=== PATIENT | female | born 1980 | race Hispanic/Latino ===

== ENCOUNTER 2021-11-03 15:55 | Inpatient (IN) | payer BC ==
[2021-11-03 17:09] LABS: Urine Blood 3+ (Negative); Urine Glucose Negative (Negative); Urine Protein 2+ (Negative); Urine Specific Gravity 1.025 (1.005-1.030); Urine pH 6.5 (5.0-7.0)
[2021-11-03 17:18] LABS: Absolute Lymphocytes (CBC) 1.1 K/uL (0.7-4.9); Hematocrit 35.8 % (36.0-45.0); Lymphocytes % 11.9 % (15.3-44.8); RBC Red Blood Cell Count 4.11 M/uL (3.86-4.86)
--- NOTE | 2021-11-03 17:20 | RAD REPORT ---
EXAM DESCRIPTION: RAD - Chest Single View - 11/03/2021 5:13 pm CLINICAL HISTORY: FEVER Chest pain. COMPARISON: <Comparisons> FINDINGS: Portable technique limits examination quality. Moderate consolidation is seen in the right upper lobe likely representing bronchopneumonia. The lung s are otherwise clear. The heart is normal in size. No displaced fractures.
[2021-11-03 17:44] LABS: Urine Bacteria 20-50 /HPF (<20)
[2021-11-03] MEDS ORDERED: NA CHLORIDE 0.9% 100 ML IV ONE (17:44)
[2021-11-03] MEDS ORDERED: AZITHROMYCIN 500 MG INJ IVPB ONE (17:44)
[2021-11-03] MEDS ORDERED: CEFTRIAXONE 1000 MG/VIAL ONE (17:44)
[2021-11-03 17:45] LABS: Urine Specific Gravity/Preg 1.025 (1.005-1.030)
[2021-11-03 17:46] LABS: Protime INR 1.39
[2021-11-03 17:55] LABS: Albumin 2.9 g/dL (3.4-5.0); Bilirubin Total 1.5 mg/dL (0.2-1.0); Potassium 3.3 mmol/L (3.5-5.1); Protein, Total 7.8 g/dL (6.4-8.2)
--- NOTE | 2021-11-03 18:03 | EDPHYS ---
Physician Documentation [facility] Name: Marley Adams Age: 41 yrs Sex: Female : 1980 Arrival Date: 11/03/2021 Time: 15:56 Bed 6 Private MD: ED Physician Bipin Le Historical: - Allergies: 11/03 16:28 No Known Allergies; ab2 - PMHx: 16:28 Mitral Valve Prolapse; ab2 - PSHx: 16:28 None; ab2 - Immunization history:: Adult Immunizations up to date. - Social history:: Smoking status: Patient denies any tobacco usage or history of. Vital Signs: 16:25 BP 138 / 91; Pulse 128; Resp 19; Temp 102.2(O); Pulse Ox 100% on R/A; Weight 92.08 kg; ab2 Height 5 ft. 1 in. (154.94 cm); Pain 10/10; 18:36 BP 118 / 65; Pulse 101; Resp 18; Pulse Ox 99% on R/A; valente 19:30 BP 113 / 59; Pulse 103; Resp 17; Pulse Ox 97% on R/A; lg3 19:43 Temp 99.2(O); lg3 16:25 Body Mass Index 38.36 (92.08 kg, 154.94 cm) ab2 MDM: 15:58 Patient medically screened. jr8 18:02 Data reviewed: vital signs, nurses notes, lab test result(s), EKG, radiologic studies, jr8 plain films. Data interpreted: Pulse oximetry: on room air is 100 %. Interpretation: normal. Counseling: I had a detailed discussion with the patient and/or guardian regarding: the historical points, exam findings, and any diagnostic results supporting the discharge/admit diagnosis, lab results, radiology results, the need for further work-up and treatment in the hospital. 18:03 ED course: Patient with right upper lob pneumonia with fever of 102.2 and HR of 128 jr8 initially. Lactate 2.3. Meets criteria for severe sepsis with organ dysfunction. Will admit for further evaluation. 11/03 16:35 Order name: Blood Culture Adult (2) jr8 11/03 16:35 Order name: CBC with Diff; Complete Time: 17:29 jr8 11/03 16:35 Order name: CMP; Complete Time: 17:59 [facility] 11/03 16:35 Order name: Lactate; Complete Time: 17:59 [facility] 11/03 16:35 Order name: Protime (+inr); Complete Time: 17:59 [facility] 11/03 16:35 Order name: Ptt, Activated; Complete Time: 17:59 [facility] 11/03 16:35 Order name: Urine Microscopic Only; Complete Time: 17:59 [facility] 11/03 16:35 Order name: Chest Single View XRAY; Complete Time: 17:29 [facility] 11/03 16:36 Order name: COVID-19/FLU A+B (Document "Date of Onset" if Symptomatic); Complete Time: 18:56 11/03 17:09 Order name: Urine --Ancillary (enter results); Complete Time: 17:[address] [facility] 11/03 17:09 Order name: Urine Dipstick-Ancillary; Complete Time: 17:29 [facility] 11/03 17:47 Order name: Urine Culture [facility] 11/03 19:55 Order name: [facility] 11/03 16:35 Order name: Accucheck; Complete Time: 18:36 [facility] 11/03 16:35 Order name: Cardiac monitoring; Complete Time: 17:16 [facility] 11/03 16:35 Order name: EKG - Nurse/Tech; Complete Time: 18:35 [facility] 11/03 16:35 Order name: IV Saline Lock - Large Bore; Complete Time: 17:15 [facility] 11/03 16:35 Order name: Labs collected and sent; Complete Time: 17:15 [facility] 11/03 16:35 Order name: O2 Per Protocol; Complete Time: 17:15 [facility] 11/03 16:35 Order name: O2 Sat Monitoring; Complete Time: 17:15 [facility] 11/03 16:35 Order name: Urine Dipstick-Ancillary (obtain specimen); Complete Time: 17:15 [facility] 11/03 16:35 Order name: Urine Test (obtain specimen); Complete Time: 17:15 [facility] 11/03 17:28 Order name: Labs - recollect needed: please recollect blue and green; Complete Time: em1 17:36 Administered Medications: 17:15 Drug: Motrin (ibuprofen) 800 mg Route: PO; valente 17:15 Follow up: Response: No adverse reaction valente 17:15 Drug: NS 0.9% (30 ml/kg) 30 ml/kg Route: IV; Rate: bolus; Site: left antecubital; valente 17:49 Drug: Rocephin (cefTRIAXone) 1 grams Route: IV; Rate: calculated rate; Site: left valente antecubital; 17:49 Follow up: IV Status: Completed infusion valente 18:03 Follow up: IV Status: Completed infusion valente 17:49 Drug: Zithromax (azithromycin) 500 mg Route: IVPB; Infused Over: 1 hrs; Site: left valente antecubital; 18:03 Follow up: IV Status: Completed infusion valente 18:36 Follow up: IV Status: Completed infusion valente 19:42 Drug: NS 0.9% (30 ml/kg) 30 ml/kg Route: IV; Rate: bolus; Site: left antecubital; as6 19:54 Follow up: Response: No adverse reaction; IV Status: Completed infusion lg3 Disposition: 11/04 15:36 Co-signature as Attending Physician, Bipin GAO was immediately available on-site ms3 in the Emergency Department for consultation in the care of the patient.. Disposition Summary: 11/03/21 18:03 Hospitalization Ordered Hospitalization Status: Inpatient Admission jr8 Provider: Polo Travis Location: Telemetry/[facility] (Inpatient) [facility] Condition: Stable jr8 Problem: new jr8 Symptoms: have improved jr8 Bed/Room Type: Standard [facility] Room Assignment: 220(11/03/21 19:34) cg Diagnosis - Pneumonia, unspecified organism jr8 - Severe sepsis without septic shock jr8 Forms: - Medication Reconciliation Form jr8 - SBAR form jr8 Signatures: Dispatcher [employer] Rich Doran em1 Aaron Chavarria PA PA jr8 Mary Jane Cyr RN Bipin Burr DO DO ms3 Ilya Marie RN RN as6 Tila Roy RN RN ha Bleininger, Alexis ab2 Gibson, Lacie RN lg3 Corrections: (The following items were deleted from the chart) 11/03 19:34 18:03 jr8 cg
--- NOTE | 2021-11-03 18:03 | ER ---
Nurse's Notes [facility] Name: Marley Adams Age: 41 yrs Sex: Female : 1980 Arrival Date: 11/03/2021 Time: 15:56 Bed 6 Private MD: Diagnosis: Pneumonia, unspecified organism;Severe sepsis without septic shock Presentation: 11/03 16:25 Chief complaint: Patient states: "I have had a fever for 4 days and I cannot break it." ab2 Pt c/o dry cough, headache and body aches. Pt last dose of Tylenol was at 1400. Coronavirus screen: Vaccine status: Patient reports receiving the 2nd dose of the covid vaccine. Client denies travel out of the [place] in the last 14 days. At this time, the client does not indicate any symptoms associated with coronavirus-19. Ebola Screen: Patient negative for fever greater than or equal to 101.5 degrees Fahrenheit, and additional compatible Ebola Virus Disease symptoms Patient denies exposure to infectious person. Patient denies travel to an Ebola-affected area in the 21 days before illness onset. No symptoms or risks identified at this time. Initial Sepsis Screen: Does the patient meet any 2 criteria? Temp <36.0*C (96.8*F)) or > 38.3*C (100.9*F). HR > 90 bpm. Yes Does the patient have a suspected source of infection? No. Patient's initial sepsis screen is negative. If YES to both, name of provider notified: Bipin Le DO Risk Assessment: Do you want to hurt yourself or someone else? Patient reports no desire to harm self or others. Onset of symptoms is unknown. 16:25 Method Of Arrival: Ambulatory ab2 16:25 Acuity: ROQUE 3 ab2 Triage Assessment: 16:29 Headache History: The patient has had previous headaches and this one is similar to ab2 previous episodes. General: Appears in no apparent distress. uncomfortable, Behavior is calm, cooperative, appropriate for age. Pain: Complains of pain in head Pain currently is 10 out of 10 on a pain scale. Pain began 4 days Also complains of decreased appetite, nausea. EENT: No deficits noted. No signs and/or symptoms were reported regarding the EENT system. Neuro: Level of Consciousness is awake, alert, obeys commands, Oriented to person, place, time, situation, Appropriate for age Associate Account Manager are equal bilaterally Moves all extremities. Gait is steady, Speech is normal, Facial symmetry appears normal, Reports headache. Cardiovascular: No deficits noted. Denies chest pain. Respiratory: Airway is patent Respiratory effort is even, unlabored, Respiratory pattern is regular, symmetrical. GI: No deficits noted. No signs and/or symptoms were reported involving the gastrointestinal system. Abdomen is round. : No deficits noted. No signs and/or symptoms were reported regarding the genitourinary system. Derm: Skin is intact, is healthy with good turgor, Skin is pink, warm \\T\\ dry. Historical: - Allergies: 16:28 No Known Allergies; ab2 - PMHx: 16:28 Mitral Valve Prolapse; ab2 - PSHx: 16:28 None; ab2 - Immunization history:: Adult Immunizations up to date. - Social history:: Smoking status: Patient denies any tobacco usage or history of. Screenin:16 Abuse screen: Denies threats or abuse. Denies injuries from another. Nutritional valente screening: No deficits noted. Tuberculosis screening: No symptoms or risk factors identified. Fall Risk IV access (20 points). Assessment: 17:16 Pain: Complains of pain in bodyaches. Neuro: No deficits noted. Level of Consciousness valente is awake, alert, obeys commands, Oriented to person, place, time, situation, Reports headache. 19:23 General: Appears in no apparent distress. comfortable, Behavior is calm, cooperative. lg3 Neuro: No deficits noted. Level of Consciousness is awake, alert, obeys commands, Oriented to person, place, time, situation. Cardiovascular: No deficits noted. Capillary refill < 3 seconds JVD is absent Patient's skin is warm and dry. Respiratory: Reports cough that is Airway is patent Trachea midline Respiratory effort is even, unlabored, Respiratory pattern is regular, symmetrical. GI: No deficits noted. No signs and/or symptoms were reported involving the gastrointestinal system. Abdomen is round non-distended. : No deficits noted. No signs and/or symptoms were reported regarding the genitourinary system. EENT: No deficits noted. No signs and/or symptoms were reported regarding the EENT system. Derm: No deficits noted. No signs and/or symptoms reported regarding the dermatologic system. Skin is intact, is healthy with good turgor, Skin is dry, Skin is pink, warm \\T\\ dry. Musculoskeletal: No deficits noted. No signs and/or symptoms reported regarding the musculoskeletal system. Circulation, motion, and sensation intact. Range of motion: intact in all extremities. 19:43 General: attempted to call report. Zari not available at this time. will try again. . lg3 Vital Signs: 16:25 BP 138 / 91; Pulse 128; Resp 19; Temp 102.2(O); Pulse Ox 100% on R/A; Weight 92.08 kg; ab2 Height 5 ft. 1 in. (154.94 cm); Pain 10/10; 18:36 BP 118 / 65; Pulse 101; Resp 18; Pulse Ox 99% on R/A; valente 19:30 BP 113 / 59; Pulse 103; Resp 17; Pulse Ox 97% on R/A; lg3 19:43 Temp 99.2(O); lg3 16:25 Body Mass Index 38.36 (92.08 kg, 154.94 cm) ab2 ED Course: 15:56 Patient arrived in ED. am2 15:58 Aaron Chavarria PA is PHCP. jr8 15:58 Bipin Le DO is Attending Physician. jr8 16:28 Triage completed. ab2 16:30 Arm band placed on left wrist. ab2 17:14 Chest Single View XRAY In Process Unspecified. EDMS 17:14 COVID-19/FLU A+B (Document "Date of Onset" if Symptomatic) Sent. valente 17:16 Tila Roy RN is Primary Nurse. valente 17:16 Patient has correct armband on for positive identification. Bed in low position. valente 17:16 No provider procedures requiring assistance completed. Inserted saline lock: 20 gauge valente in left antecubital area, using aseptic technique. 18:02 Polo Travis MD is Hospitalizing Provider. jr8 19:23 Door closed. Noise minimized. Warm blanket given. Pillow given. lg3 19:24 Primary Nurse role handed off by Tila Roy, KRYS cs9 19:37 Kelle Stevens, KRYS is Primary Nurse. lg3 19:54 Patient admitted, IV remains in place. intact, No redness/swelling at site. lg3 Administered Medications: 17:15 Drug: Motrin (ibuprofen) 800 mg Route: PO; valente 17:15 Follow up: Response: No adverse reaction valente 17:15 Drug: NS 0.9% (30 ml/kg) 30 ml/kg Route: IV; Rate: bolus; Site: left antecubital; valente 17:49 Drug: Rocephin (cefTRIAXone) 1 grams Route: IV; Rate: calculated rate; Site: left valente antecubital; 17:49 Follow up: IV Status: Completed infusion valente 18:03 Follow up: IV Status: Completed infusion valente 17:49 Drug: Zithromax (azithromycin) 500 mg Route: IVPB; Infused Over: 1 hrs; Site: left antecubital; 18:03 Follow up: IV Status: Completed infusion valente 18:36 Follow up: IV Status: Completed infusion valente 19:42 Drug: NS 0.9% (30 ml/kg) 30 ml/kg Route: IV; Rate: bolus; Site: left antecubital; as6 19:54 Follow up: Response: No adverse reaction; IV Status: Completed infusion [facility] Outcome: 18:03 Decision to Hospitalize by Provider. oxana 19:53 Admitted to Med/surg accompanied by tech, via wheelchair, room 220, Report called to [address] 19:53 Condition: stable 19:53 Instructed on the need for admit. 20:10 Patient left the ED. as6 Signatures: Dispatcher [employer] EDMS Aaron Chavarria PA PA jr8 Monica Cohn am2 Kelle Stevens RN RN 3 Starr Henao 9 Ilya Marie RN RN as6 Tila Roy RN RN ha Bleininger, Alexis ab2
[2021-11-03] MEDS ORDERED: NA CHLORIDE 0.9% 1,000 ML ONE (18:04)
[2021-11-03 18:51] LABS: SARS-COV-2 RT PCR NEGATIVE (NEGATIVE)
--- NOTE | 2021-11-03 19:48 | P.HP ---
Certification for Inpatient Patient admitted to: Inpatient With expected LOS: >2 Midnights Patient will require the following post-hospital care: None Practitioner: I am a practitioner with admitting privileges, knowledge of patient current condition, hospital course, and medical plan of care. Services: Services provided to patient in accordance with Admission requirements found in Title 42 Section 412.3 of the Code of Federal Regulations Patient History Date of Service: 11/03/21 History of Present Illness: 41-year-old female with history of MVP presents emergency department with 4 days of fever, cough, general malaise and myalgias. Upon presentation to the emergency department patient was febrile, tachycardic and met sepsis criteria. Her labs were significant for mild lactic acidosis as well as mild elevation in her LFTs. Her chest x-ray did demonstrate a moderate consolidation seen in the right upper lobe likely representing bronchopneumonia. Her flu and COVID test were negative she has not been hypotensive heart rate did improve after IV fluids. Given her mild elevations in LFTs she did qualify for severe sepsis with endorgan damage although this also could be related to use of Tylenol over the course of the last 4 days for fever or possibly fatty liver disease. Will admit for further evaluation and management of sepsis, pneumonia. - Past Medical/Surgical History -: MVP -: Cervical fusion Psychosocial/ Personal History: Patient works as a teacher, lives at home with family - Family History Family History: Reviewed- Non-Contributory - Social History Smoking Status: Never smoker Alcohol use: No CD- Drugs: No Caffeine use: Yes Place of Residence: Home Review of Systems 10-point ROS is otherwise unremarkable General: Fever, Chills, Weakness, Malaise, Other (Myalgias) Respiratory: Cough Physical Examination - Physical Exam General: Alert, In no apparent distress, Oriented x3 HEENT: Atraumatic, PERRLA, Mucous membr. moist/pink, EOMI, Sclerae nonicteric Neck: Supple, 2+ carotid pulse no bruit, No LAD, Without JVD or thyroid abnormality Respiratory: Clear to auscultation bilaterally, Normal air movement Cardiovascular: Regular rate/rhythm, Normal S1 S2 Gastrointestinal: Normal bowel sounds, No tenderness Musculoskeletal: No tenderness Integumentary: No rashes Neurological: Normal gait, Normal speech, Normal strength at 5/5 x4 extr, Normal tone, Normal affect Lymphatics: No axilla or inguinal lymphadenopathy - Studies Laboratory Data (last 24 hrs) 11/03/21 17:25: PT 15.4 H, INR 1.39, APTT 35.2 11/03/21 17:25: Sodium 136, Potassium 3.3 L, BUN 11, Creatinine 0.82, Glucose 101, Total Bilirubin 1.5 H, AST 50 H, ALT 79 H, Alkaline Phosphatase 264 H 11/03/21 17:01: WBC 9.5, Hgb 12.2, Hct 35.8 L, Plt Count 373 Assessment and Plan - Plan Assessment: Severe sepsis without septic shock secondary to right upper lobe community- acquired pneumonia Elevated aminotransferase levels Plan: Severe sepsis without septic shock secondary to right upper lobe community- acquired pneumonia: Patient received 30 cc/kg IV fluid bolus in the ER continue IV fluids overnight continue broad-spectrum antibiotics Rocephin/Zithromax. Blood cultures were obtained. Patient qualifies for severe sepsis given organ dysfunction with elevation in LFT. Patient is not hypotensive, currently stable. Elevated aminotransferase levels: Likely multifactorial related to sepsis, Tylenol use over the course of last 4 days for fever, possible fatty liver disease. Will obtain ultrasound to further evaluate. Daily CMP. DVT PPX: Lovenox Code status: Full Discharge Plan: Home Plan to discharge in: 48 Hours - Advance Directives Does patient have a Living Will: No Does patient have a Durable POA for Healthcare: No - Code Status/Comfort Care Code Status Assessed: Yes (Full code) Critical Care: No Time Spent Managing Pts Care (In Minutes): 55
--- NOTE | 2021-11-03 19:53 | RAD REPORT ---
EXAM DESCRIPTION: US - Abdomen Exam Limited - 11/03/2021 7:39 pm CLINICAL HISTORY: eval liver/gallbladder, LFT/Tbili elev. Abdominal pain COMPARISON: No comparisons FINDINGS: The gallbladder demonstrates no gallstones. No pericholecystic fluid or gallbladder wall t hickening. The common bile duct is normal measuring 3 mm. The liver demonstrates no findings of intrahepatic biliary dilatation. IMPRESSION: Unremarkable examination.
[2021-11-03] MEDS ORDERED: ONDANSETRON 4 MG/2 ML VIAL IV PRN (20:30)
[2021-11-03 23:15] VITALS: O2SAT 97; BMI 37.8
[2021-11-03] MEDS: IBUPROFEN 400 MG TAB PO PRN (23:24)
[2021-11-03] MEDS: NA CHLORIDE 0.9% 1,000 ML IV SCH (23:27)
[2021-11-04] MEDS: BENZONATATE 100 MG CAP PO PRN ×3 (00:10→16:21)
[2021-11-04 05:21] LABS: Absolute Lymphocytes (CBC) 1.2 K/uL (0.7-4.9); Hematocrit 31.5 % (36.0-45.0); Lymphocytes % 13.4 % (15.3-44.8); MPV 7.9 fL (7.6-11.3)
[2021-11-04 05:46] LABS: ALT/SGPT 59 U/L (12-78); AST/SGOT 29 U/L (15-37); Albumin 2.4 g/dL (3.4-5.0); Alkaline Phosphatase 237 U/L (45-117); BUN Blood Urea Nitrogen 8 mg/dL (7-18); Bicarbonate 22 mmol/L (21-32); Glucose Level 93 mg/dL (74-106); Potassium 3.3 mmol/L (3.5-5.1); Protein, Total 6.7 g/dL (6.4-8.2); Sodium Level 141 mmol/L (136-145)
--- NOTE | 2021-11-04 06:37 | P.PN ---
Date of Service: 11/04/21 Subjective: fever overnight. broke this morning, feels better now no new / worsening symptoms ROS: 10 point ROS as noted above, otherwise negative Physical exam GEN: Alert, oriented, NAD HEENT: Normal conjunctiva, sclera anicteric CV: Regular rate and rhythm, no edema Pulm: Nonlabored respirations on room air, dry cough ABD: Soft, nontender, nondistended Neuro: Normal speech, normal affect Problem List Severe sepsis without septic shock secondary to right upper lobe community- acquired pneumonia Elevated aminotransferase levels continue IV fluids, diaphoretic continue rocephin/azithro f/u cultures Elevated aminotransferase levels: Likely multifactorial related to sepsis, Tylenol use over the course of last 4 days for fever, possible fatty liver disease. - improved DVT: Lovenox Code: Full Dispo: Home, ~24-48hrs Time Spent Managing Pts Care (In Minutes): 35
[2021-11-04] MEDS: IBUPROFEN 400 MG TAB PO PRN (06:39)
[2021-11-04] MEDS: NA CHLORIDE 0.9% 1,000 ML IV SCH ×2 (06:44→16:20)
[2021-11-04] MEDS: ENOXAPARIN 40 MG/0.4 ML SQ SCH (08:18)
[2021-11-04] MEDS: ACETAMINOPHEN 325 MG TABLET PO PRN ×3 (08:22→21:56)
[2021-11-04] MEDS: IBUPROFEN 600 MG TAB PO PRN ×2 (14:34→20:54)
[2021-11-04] MEDS: AZITHROMYCIN IV 500 MG in NA CHLORIDE 0.9% 250 ML IVPB SCH (16:21)
[2021-11-04] MEDS: CEFTRIAXONE 1,000 MG in NA CHLORIDE 0.9% 50 ML IVPB SCH (16:21)
[2021-11-05] MEDS: MELATONIN 5 MG TABLET PO PRN (00:06)
[2021-11-05] MEDS: NA CHLORIDE 0.9% 1,000 ML IV SCH (05:54)
[2021-11-05] MEDS: BENZONATATE 100 MG CAP PO PRN ×3 (05:56→22:10)
[2021-11-05 06:26] LABS: Absolute Lymphocytes (CBC) 1.4 K/uL (0.7-4.9); Lymphocytes % 21.3 % (15.3-44.8); MPV 7.9 fL (7.6-11.3); RBC Red Blood Cell Count 3.34 M/uL (3.86-4.86)
[2021-11-05] MEDS ORDERED: NA CHLORIDE 0.9% 1,000 ML IV SCH (06:28)
--- NOTE | 2021-11-05 06:28 | P.PN ---
Date of Service: 11/05/21 Subjective: Improving, fever breaking for longer, not as diaphoretic Feeling better when afebrile, No new complaints/worsening symptoms Feels cough is getting slightly more productive ROS: 10 point ROS as noted above, otherwise negative Physical exam GEN: Alert, oriented, NAD HEENT: Normal conjunctiva, sclera anicteric CV: Regular rate and rhythm, no edema Pulm: Non-labored respirations on room air, dry cough ABD: Soft, nontender, nondistended Neuro: Normal speech, normal affect Problem List Severe sepsis without septic shock secondary to right upper lobe community- acquired pneumonia Elevated aminotransferase levels, improved continue IV fluids, diaphoretic; likely dc later today continue rocephin/azithro, fever curve improving f/u cultures - blood negative so far Elevated aminotransferase levels: Likely multifactorial related to sepsis vs tylenol use U/S ok DVT: Lovenox Code: Full Dispo: Home, ~24-48hrs further improvement, afebrile ~24hrs Time Spent Managing Pts Care (In Minutes): 35
[2021-11-05 06:51] LABS: ALT/SGPT 68 U/L (12-78); AST/SGOT 35 U/L (15-37); Albumin 2.2 g/dL (3.4-5.0); Alkaline Phosphatase 253 U/L (45-117); BUN Blood Urea Nitrogen 5 mg/dL (7-18); Bicarbonate 25 mmol/L (21-32); Bilirubin Total 0.5 mg/dL (0.2-1.0); Glucose Level 89 mg/dL (74-106); Potassium 3.2 mmol/L (3.5-5.1); Protein, Total 6.6 g/dL (6.4-8.2); Sodium Level 143 mmol/L (136-145)
[2021-11-05] MEDS: ACETAMINOPHEN 325 MG TABLET PO PRN ×2 (07:58→16:15)
[2021-11-05] MEDS: ENOXAPARIN 40 MG/0.4 ML SQ SCH (08:00)
[2021-11-05] MEDS ORDERED: POTASSIUM CL SA 10 MEQ TAB PO ONE (09:00)
[2021-11-05] MEDS: IBUPROFEN 600 MG TAB PO PRN (14:22)
[2021-11-05] MEDS: AZITHROMYCIN IV 500 MG in NA CHLORIDE 0.9% 250 ML IVPB SCH (16:16)
[2021-11-05] MEDS: CEFTRIAXONE 1,000 MG in NA CHLORIDE 0.9% 50 ML IVPB SCH (16:17)
[2021-11-06] MEDS: MELATONIN 5 MG TABLET PO PRN (00:05)
[2021-11-06] MEDS: GUAIFENESIN/CODEINE 5ML UCUP PO PRN ×2 (02:08→17:31)
[2021-11-06] MEDS: ACETAMINOPHEN 325 MG TABLET PO PRN ×2 (05:04→20:08)
--- NOTE | 2021-11-06 06:28 | P.PN ---
Date of Service: 11/06/21 Subjective: feeling better, fever persists but less often/less severe energy/appetite improving cough more productive ROS: 10 point ROS as noted above, otherwise negative Physical exam GEN: Alert, oriented, NAD HEENT: Normal conjunctiva, sclera anicteric CV: Regular rate and rhythm, no edema Pulm: Non-labored respirations on room air, dry cough Neuro: Normal speech, normal affect Problem List Severe sepsis without septic shock secondary to right upper lobe community- acquired pneumonia Elevated aminotransferase levels, improved dc'd IVF continue rocephin/azithro, fever curve improving f/u cultures - blood negative so far Elevated aminotransferase levels: Likely multifactorial related to sepsis vs tylenol use; improved U/S ok fever curve improving repeat CXR ordered today DVT: Lovenox Code: Full Dispo: Home, ~24-48hrs further improvement, afebrile ~24hrs Time Spent Managing Pts Care (In Minutes): 35
--- NOTE | 2021-11-06 07:54 | RAD REPORT ---
EXAM DESCRIPTION: Shane Single View11/06/2021 5:32 am CLINICAL HISTORY: Chest pain COMPARISON: November 03, 2021 FINDINGS: Minimal worsening in the right upper lobe consolidation Left lung appears clear Heart is normal size IMPRESSION: Minimal worsening in the right upper lobe consolidation likely pneumonia. This should be followed until it has cleared to help exclude a post obstructive process/underlying mass
[2021-11-06 08:22] LABS: BUN Blood Urea Nitrogen 7 mg/dL (7-18); Bicarbonate 27 mmol/L (21-32); Glucose Level 93 mg/dL (74-106); Magnesium 2.3 mg/dL (1.8-2.4); Potassium 3.3 mmol/L (3.5-5.1); Sodium Level 142 mmol/L (136-145)
[2021-11-06] MEDS ORDERED: POTASSIUM CL SA 10 MEQ TAB PO ONE ×2 (09:00→17:00)
[2021-11-06] MEDS: ENOXAPARIN 40 MG/0.4 ML SQ SCH (09:08)
[2021-11-06] MEDS: CEFTRIAXONE 1,000 MG in NA CHLORIDE 0.9% 50 ML IVPB SCH (16:38)
[2021-11-06] MEDS: AZITHROMYCIN IV 500 MG in NA CHLORIDE 0.9% 250 ML IVPB SCH (17:25)
[2021-11-07] MEDS: GUAIFENESIN/CODEINE 5ML UCUP PO PRN (00:25)
[2021-11-07] MEDS: MELATONIN 5 MG TABLET PO PRN (00:25)
[2021-11-07 04:33] LABS: BUN Blood Urea Nitrogen 6 mg/dL (7-18); Bicarbonate 28 mmol/L (21-32); Glucose Level 93 mg/dL (74-106); Potassium 3.6 mmol/L (3.5-5.1); Sodium Level 143 mmol/L (136-145)
[2021-11-07] MEDS: ENOXAPARIN 40 MG/0.4 ML SQ SCH (08:33)
[2021-11-07] MEDS ORDERED: POTASSIUM CL SA 10 MEQ TAB PO ONE (09:00)
--- NOTE | 2021-11-07 10:59 | P.DS ---
Admission Date: 11/03/21 Discharge Date: 11/07/21 Disposition: ROUTINE DISCHARGE Discharge Condition: FAIR Brief History of Present Illness: 41-year-old female with history of MVP presents emergency department with 4 days of fever, cough, general malaise and myalgias. Upon presentation to the emergency department patient was febrile, tachycardic and met sepsis criteria. Her labs were significant for mild lactic acidosis as well as mild elevation in her LFTs. Her chest x-ray did demonstrate a moderate consolidation seen in the right upper lobe likely representing bronchopneumonia. Her flu and COVID test were negative she has not been hypotensive heart rate did improve after IV fluids. Given her mild elevations in LFTs she did qualify for severe sepsis with endorgan damage although this also could be related to use of Tylenol over the course of the last 4 days for fever or possibly fatty liver disease. Will admit for further evaluation and management of sepsis, pneumonia. Hospital Course: Problem List Severe sepsis without septic shockecondary to right upper lobe community- acquired pneumonia Elevated aminotransferase levels, improved Patient admitted to the medical floor and treated with IV Rocephin and Zithromax for pneumonia. She had intermittent fever which later resolved. He did not require oxygen. No leukocytosis. Blood cultures yielded no growth. Had elevated alkaline phosphatase: likely multifactorial related to sepsis vs tylenol use; improved U/S liver unremarkable. No fever for the past 24 hours. Patient is clinically stable, she is eating well, ambulating, no shortness of breath. She is deemed stable for discharge. She is prescribed Augmentin and Zithromax to continue treatment for the pneumonia. Vital Signs/Physical Exam: Temp Pulse Resp BP Pulse Ox 97.9 F 89 18 112/69 95 11/07/21 08:00 11/07/21 08:00 11/07/21 08:00 11/07/21 08:00 11/07/21 08:00 General: Alert, In no apparent distress, Oriented x3 HEENT: Normocephalic, Mucous membr. moist/pink Neck: Supple, JVD not distended Respiratory: Clear to auscultation bilaterally, Normal air movement Cardiovascular: No edema, Regular rate/rhythm, Normal S1 S2, No murmurs Capillary refill: <2 Seconds Gastrointestinal: Soft and benign, Non-distended, No tenderness Musculoskeletal: No swelling Integumentary: No rashes Neurological: Normal strength at 5/5 x4 extr Laboratory Data at Discharge: WBC 6.4 K/uL (4.3-10.9) D 11/05/21 05:31 Hgb 9.8 g/dL (12.0-15.0) L 11/05/21 05:31 Hct 29.0 % (36.0-45.0) L 11/05/21 05:31 Plt Count 332 K/uL (152-406) 11/05/21 05:31 PT 15.4 SECONDS (9.5-12.5) H 11/03/21 17:25 INR 1.39 11/03/21 17:25 APTT 35.2 SECONDS (24.3-36.9) 11/03/21 17:25 Sodium 143 mmol/L (136-145) 11/07/21 03:36 Potassium 3.6 mmol/L (3.5-5.1) 11/07/21 03:36 BUN 6 mg/dL (7-18) L 11/07/21 03:36 Creatinine 0.65 mg/dL (0.55-1.3) 11/07/21 03:36 Glucose 93 mg/dL (74-106) 11/07/21 03:36 Magnesium 2.3 mg/dL (1.8-2.4) 11/06/21 07:58 Total Bilirubin 0.5 mg/dL (0.2-1.0) 11/05/21 05:31 AST 35 U/L (15-37) 11/05/21 05:31 ALT 68 U/L (12-78) 11/05/21 05:31 Alkaline Phosphatase 253 U/L (45-117) H 11/05/21 05:31 Home Medications: Acetaminophen [Tylenol*] 650 mg PO Q6H PRN #30 tab 11/07/21 Amox/Clavulanate [Augmentin 875-125 Tab] 1 each PO BID #20 tab 11/07/21 Azithromycin [Zithromax] 500 mg PO DAILY #7 tablet 11/07/21 Benzonatate [Tessalon Perle*] 100 mg PO TID PRN #30 cap 11/07/21 Guaifenesin/Codeine Phosphate [Ninjacof-Xg Liquid] 10 ml PO Q6HR PRN #473 ml 11/07/21 Ibuprofen [Motrin] 600 mg PO Q6H PRN #20 tab 11/07/21 New Medications: Guaifenesin/Codeine Phosphate [Ninjacof-Xg Liquid] 10 ml PO Q6HR PRN #473 ml PRN Reason: Cough Amox/Clavulanate [Augmentin 875-125 Tab] 1 each PO BID #20 tab Ibuprofen [Motrin] 600 mg PO Q6H PRN #20 tab PRN Reason: Pain Scale 2-4 (Mild) Benzonatate [Tessalon Perle*] 100 mg PO TID PRN #30 cap PRN Reason: Cough Acetaminophen [Tylenol*] 650 mg PO Q6H PRN #30 tab PRN Reason: Temp > 101' F Azithromycin [Zithromax] 500 mg PO DAILY #7 tablet Diet: Regular Activity: Ad mario Followup: NONE,NONE [Primary Care Provider] - Time spent managing pt's care (in minutes): 36
[2021-11-07 12:15] VITALS: BP 106/55; TEMP 97.6
== END 2021-11-07 12:31 | disposition home or self-care (01) | DRG 871 ==
LOC: ER 15:55 → ERHOLD 18:58 → 2ND 19:42
PROVIDERS: ADMIT Hospitalist; ATTEND Hospitalist
DX: A41.9 Sepsis, unspecified organism (principal); J18.9 Pneumonia, unspecified organism; R65.20 Severe sepsis without septic shock; R74.01 Elevation of levels of liver transaminase levels; I34.1 Nonrheumatic mitral (valve) prolapse; Z20.822 Contact with and (suspected) exposure to COVID-19
CPT/HCPCS: 0240U; 36415; 71045; 76705; 80048; 80053; 81003; 81015; 81025; 83605; 83735; 84132; 85025; 85610; 85730; 87040; 87086; 87088; 93005; 94010; 96365; 96366; 96375; 99285; J0456; J1650; J2405; J7030; J7050